=== PATIENT | male | born 1975 | race Hispanic/Latino ===

== ENCOUNTER 2021-08-08 11:09 | Emergency (ER) | payer OTHER ==
[~2021-08-08] VITALS: Ht 180.3 cm; Wt 90.7 kg
== END 2021-08-08 14:05 | disposition home or self-care (01) ==
LOC: ER 11:26
DX: S92.511A Displaced fracture of proximal phalanx of right lesser toe(s), initial encounter for closed fracture (principal); W22.09XA Striking against other stationary object, initial encounter; Y93.01 Activity, walking, marching and hiking; Y92.008 Other place in unspecified non-institutional (private) residence as the place of occurrence of the external cause
CPT/HCPCS: 99283